=== PATIENT | male | born 1960 | race Caucasian/White ===

== ENCOUNTER 2020-02-01 16:49 | Emergency (ER) | payer SELFPAY ==
[2020-02-01] MEDS ORDERED: Diphtheria/Tetanus Toxoids,Adult (Td) 0.5 ML SDV IM ONE (17:24)
--- NOTE | 2020-02-01 17:33 | EDM.PDOC ---
ED HPI GENERAL MEDICAL PROBLEM - General Chief Complaint: General Stated Complaint: FISH HOOK IN RIGHT THUMB Time Seen by Provider: 02/01/20 17:00 Source of Information: Reports: Patient History Limitations: Reports: No Limitations - History of Present Illness INITIAL COMMENTS - FREE TEXT/NARRATIVE: Patient is a 59 y/o male who present with used fish hook to right thumb since 1 100 this morning. He is unsure when his last tetanus immunization was. Patient taped the hook down and continued to fish throughout the afternoon. He denied any numbness/tingling. Past Medical History - Past Health History Medical/Surgical History: Denies Medical/Surgical History ED ROS GENERAL - Review of Systems Review Of Systems: Comprehensive ROS is negative, except as noted in HPI. ED EXAM, GENERAL - Physical Exam Exam: See Below Exam Limited By: No Limitations General Appearance: Alert, No Apparent Distress Skin Exam: Warm, Dry (Patient with small fish hook about <0.5 cm into right thumb.) ED GENERAL MEDICAL PROCEDURES - Additional/Other Procedure(s) Other (Free Text) Procedure(s): 3 cc of 1% lidocaine without epi injected into puncture hook wound. #11 blade used to tommie the skin where hook penetrated and hook was successfully removed. Course - Vital Signs Last Recorded V/S: Last Vital Signs Temp 36.1 C 02/01/20 16:57 Pulse 76 02/01/20 16:57 Resp 16 02/01/20 16:57 BP 149/104 H 02/01/20 16:57 Pulse Ox 96 02/01/20 16:57 - Orders/Labs/Meds Orders: Active Orders 24 hr Category Date Time Status Vaccines to be Administered [RC] PER UNIT ROUTINE Care 02/01/20 17:25 Ordered Diphtheria/Tetanus Tox,Adult [Tenivac] Med 02/01/20 17:24 Once 0.5 ml IM .ONCE ONE Sulfamethoxazole/Trimethoprim [Septra DS] Med 02/02/20 17:25 Once 1 tab PO ONETIME ONE Departure - Departure Time of Disposition: 17:40 Disposition: Home, Self-Care 01 Condition: Good Clinical Impression: Fish hook injury of finger Qualifiers: Encounter type: initial encounter Laterality: right Qualified Code(s): S69.91XA - Unspecified injury of right wrist, hand and finger(s), initial encounter - Discharge Information *PRESCRIPTION DRUG MONITORING PROGRAM REVIEWED*: No *COPY OF PRESCRIPTION DRUG MONITORING REPORT IN PATIENT LINH: No Referrals: PCP,None [Primary Care Provider] - Sepsis Event Note (ED) - Evaluation Sepsis Screening Result: No Definite Risk - Focused Exam Vital Signs: Vital Signs Temp Pulse Resp BP Pulse Ox 02/01/20 16:57 36.1 C 76 16 149/104 H 96 - My Orders Last 24 Hours: My Active Orders 02/01/20 17:24 Diphtheria/Tetanus Tox,Adult [Tenivac] 0.5 ml IM .ONCE ONE 02/01/20 17:25 Vaccines to be Administered [RC] PER UNIT ROUTINE 02/02/20 17:25 Sulfamethoxazole/Trimethoprim [Septra DS] 1 tab PO ONETIME ONE - Assessment/Plan Last 24 Hours: My Active Orders 02/01/20 17:24 Diphtheria/Tetanus Tox,Adult [Tenivac] 0.5 ml IM .ONCE ONE 02/01/20 17:25 Vaccines to be Administered [RC] PER UNIT ROUTINE 02/02/20 17:25 Sulfamethoxazole/Trimethoprim [Septra DS] 1 tab PO ONETIME ONE Plan: Bactrim DS PO BID x 5 days, first dose given in ED. Tetanus immunization given. Keep wound dry and clean. No ointments or soaks. Return to the ED for fever >102, unable to tolerate fluids, difficulty breathing/swallowing, and/or persistent/worsening symptoms.
[2020-02-02] MEDS ORDERED: Sulfamethoxazole/Trimethoprim 800-160 MG Tab PO ONE (17:25)
== END 2020-02-01 17:50 | disposition home or self-care (01) ==
LOC: LB.ED 16:49
DX: S61.041A Puncture wound with foreign body of right thumb without damage to nail, initial encounter (principal); Z23 Encounter for immunization; W45.8XXA Other foreign body or object entering through skin, initial encounter
CPT/HCPCS: 10120; 90471; 90714; 99282; A9270